=== PATIENT | female | born 1950 | race African-American/Black ===

== ENCOUNTER 2018-07-17 15:36 | Emergency (ER) | payer OTHER ==
[2018-07-17] MEDS: HALOPERIDOL 5 MG INJ IM (15:50)
[2018-07-17] MEDS: LORAZEPAM 2 MG INJ IV (16:01)
[2018-07-17] MEDS ORDERED: LORAZEPAM 2 MG INJ (16:03)
[2018-07-17 16:19] LABS: ADD MAN DIFF? NO
[2018-07-17 16:21] LABS: BASOPHILS % 0.2 % (0.0-2.0); EOSINOPHILS % 0.4 % (0.0-7.0); HEMATOCRIT 42.5 % (37.0-47.0); HEMOGLOBIN 13.6 g/dl (12.0-16.0); LYMPHOCYTES # 4.2 10^3/ul (0.8-2.9); MEAN CORPUSCULAR HEMOGLOBIN 28.9 pg (29.0-33.0); MEAN CORPUSCULAR VOLUME 90.2 fl (82.0-101.0); MEAN PLATELET VOLUME 9.4 fl (7.4-10.4); MONOCYTE # 0.8 10^3/ul (0.3-0.9); MONOCYTES % 8.4 % (0.0-11.0); NEUTROPHIL # 4.4 10^3/ul (1.6-7.5); NEUTROPHILS % 46.7 % (39.0-77.0); PLATELET COUNT 226 10^3/UL (140-415); RED BLOOD COUNT 4.71 10^6/ul (4.20-5.40); RED CELL DISTRIBUTION WIDTH 15.3 % (11.5-14.5)
[2018-07-17 16:21] LABS: WHITE BLOOD COUNT 9.5 10^3/ul (4.8-10.8)
[2018-07-17 16:39] LABS: ANION GAP 20 (5-13); BLOOD UREA NITROGEN 10 mg/dl (7-20); CALCIUM 10.4 mg/dl (8.4-10.2); CARBON DIOXIDE 17 mmol/L (21-31); CHLORIDE 109 mmol/L (97-110); CHOL/HDL RATIO 4.8 RATIO; CHOLESTEROL 238 mg/dl (100-200); CREATININE 0.67 mg/dl (0.44-1.00); Estimated GFR > 60 mL/min (>60); GLUCOSE 122 mg/dl (70-220); HDL CHOLESTEROL 49 mg/dl (35-98); LDL CHOLESTEROL,CALCULATED 171 mg/dl; POTASSIUM 3.4 mmol/L (3.5-5.1); SODIUM 146 mmol/L (135-144); TRIGLYCERIDES 91 mg/dl (0-149)
[2018-07-17 16:40] LABS: INR 1.08; PROTIME 14.1 Sec (11.9-14.9); PT RATIO 1.1
[2018-07-17 16:41] LABS: PARTIAL THROMBOPLASTIN TIME 27.2 Sec (23.0-35.0)
[2018-07-17 16:51] LABS: TROPONIN-I < 0.012 ng/ml (0.000-0.120)
[2018-07-17 16:55] LABS: HEMOGLOBIN A1C 5.1 % (0-5.9)
[2018-07-17 16:59] LABS: VALPROATE < 10 ug/ml (50-100)
[2018-07-17 17:34] LABS: ADD UMIC NO; UR ASCORBIC ACID 40 mg/dL (NEGATIVE); UR BILIRUBIN (Dip) NEGATIVE (NEGATIVE); UR BLOOD (Dip) NEGATIVE (NEGATIVE); UR CLARITY CLEAR (CLEAR); UR COLOR YELLOW (YELLOW); UR GLUCOSE (Dip) NEGATIVE (NEGATIVE); UR KETONES (Dip) NEGATIVE (NEGATIVE); UR LEUKOCYTE ESTERASE (Dip) NEGATIVE Leu/ul (NEGATIVE); UR NITRITE (Dip) NEGATIVE (NEGATIVE); UR SPECIFIC GRAVITY (Dip) 1.013 (1.003-1.030); UR TOTAL PROTEIN (Dip) NEGATIVE (NEGATIVE); UR UROBILINOGEN (Dip) NEGATIVE (NEGATIVE)
[2018-07-17 17:49] LABS: AMPHETAMINE/METHAMPHETAMINE Negative (NEGATIVE); BARBITURATES Negative (NEGATIVE); BENZODIAZEPINES Negative (NEGATIVE); CANNABINOIDS Negative (NEGATIVE); COCAINE Negative (NEGATIVE); OPIATES Negative (NEGATIVE)
== END 2018-07-17 22:23 | disposition home or self-care (01) ==
LOC: E/R 15:36
DX: R41.82 Altered mental status, unspecified (principal); R56.9 Unspecified convulsions; I63.9 Cerebral infarction, unspecified
CPT/HCPCS: 36415; 70450; 71045; 80048; 80061; 80164; 80307; 81003; 82962; 83036; 84484; 85025; 85610; 85730; 93005; 96372; 96374; 99285-25

== ENCOUNTER 2018-07-17 23:03 | Emergency (ER) | payer OTHER ==
[2018-07-18] MEDS: VALPROATE INJ 500 MG in SOD CHLORIDE 0.9% 50 ML IVPB (01:03)
== END 2018-07-18 01:56 | disposition short-term general hospital (02) ==
LOC: E/R 23:03
DX: G40.309 Generalized idiopathic epilepsy and epileptic syndromes, not intractable, without status epilepticus (principal); R41.0 Disorientation, unspecified; E87.6 Hypokalemia; E87.2 Acidosis; Z91.14 Patient's other noncompliance with medication regimen
CPT/HCPCS: 82962; 93005; 96374; 99285-25

== ENCOUNTER 2018-09-12 07:52 | Emergency (ER) | payer OTHER ==
[2018-09-12 08:43] LABS: WHITE BLOOD COUNT 7.5 10^3/ul (4.8-10.8)
[2018-09-12 08:43] LABS: ADD MAN DIFF? NO; BASOPHILS % 0.3 % (0.0-2.0); EOSINOPHILS # 0.1 10^3/ul (0.0-0.5); EOSINOPHILS % 0.8 % (0.0-7.0); HEMATOCRIT 39.6 % (37.0-47.0); HEMOGLOBIN 13.3 g/dl (12.0-16.0); LYMPHOCYTES # 1.6 10^3/ul (0.8-2.9); MEAN CORPUSCULAR HEMOGLOBIN 29.2 pg (29.0-33.0); MEAN CORPUSCULAR HGB CONC 33.6 g/dl (32.0-37.0); MEAN CORPUSCULAR VOLUME 86.8 fl (82.0-101.0); MEAN PLATELET VOLUME 9.3 fl (7.4-10.4); MONOCYTE # 0.6 10^3/ul (0.3-0.9); MONOCYTES % 7.6 % (0.0-11.0); NEUTROPHIL # 5.2 10^3/ul (1.6-7.5); PLATELET COUNT 231 10^3/UL (140-415); RED BLOOD COUNT 4.56 10^6/ul (4.20-5.40)
[2018-09-12] MEDS: CEFEPIME 2GM/50 ML (PMX) 50 ML IVPB (08:50)
[2018-09-12] MEDS: SOD CHLORIDE 0.9% 1,000 ML IV (08:50)
[2018-09-12] MEDS: LORAZEPAM 2 MG INJ IV (08:50)
[2018-09-12] MEDS: LEVETIRACETAM 1000 MG (PMX) 100 ML IVPB (08:53)
[2018-09-12] MEDS: SODIUM CHLORIDE 0.9% 1L BAG IV* (08:57)
[2018-09-12 09:01] LABS: ALANINE AMINOTRANSFERASE 14 IU/L (13-69); ALBUMIN 3.5 g/dl (3.3-4.9); ALBUMIN/GLOBULIN RATIO 0.94; ALKALINE PHOSPHATASE 109 IU/L (42-121); ANION GAP 8 (5-13); ASPARTATE AMINO TRANSFERASE 18 IU/L (15-46); BILIRUBIN,INDIRECT 0.7 mg/dl (0-1.1); BILIRUBIN,TOTAL 0.7 mg/dl (0.2-1.3); BLOOD UREA NITROGEN 8 mg/dl (7-20); CALCIUM 9.5 mg/dl (8.4-10.2); CARBON DIOXIDE 27 mmol/L (21-31); CHLORIDE 108 mmol/L (97-110); CREATINE KINASE 43 IU/L (23-200); Estimated GFR > 60 mL/min (>60); GLUCOSE 111 mg/dl (70-220); POTASSIUM 3.6 mmol/L (3.5-5.1); SODIUM 143 mmol/L (135-144); TOTAL PROTEIN 7.2 g/dl (6.1-8.1)
[2018-09-12 09:03] LABS: INR 0.91; PARTIAL THROMBOPLASTIN TIME 24.7 Sec (23.0-35.0); PROTIME 12.4 Sec (11.9-14.9)
[2018-09-12 09:04] LABS: ACETAMINOPHEN < 10.0 ug/ml (10.0-30.0)
[2018-09-12 09:05] LABS: ETHANOL < 10.0 mg/dl (0-0); SALICYLATE < 1.0 mg/dl (5.0-30.0)
[2018-09-12 09:09] LABS: CK INDEX 0.6; CK-MB 0.25 ng/ml (0.0-2.4)
[2018-09-12 09:14] LABS: TROPONIN-I < 0.012 ng/ml (0.000-0.120)
[2018-09-12 09:27] LABS: FREE THYROXINE INDEX (Calc) 3.33 ug/ml (0.65-3.89); T3 UPTAKE 35.1 % (23.5-40.5); T4 (THYROXINE) 9.5 ug/dl (5.5-11.0)
[2018-09-12 09:57] LABS: VALPROATE < 10 ug/ml (50-100)
[2018-09-12] MEDS: VANCOMYCIN 1 GM (PMX) 250 ML IVPB (10:28)
[2018-09-12 11:19] LABS: LACTIC ACID 1.9 mmol/L (0.5-2.0)
== END 2018-09-12 13:25 | disposition home or self-care (01) ==
LOC: E/R 13:25
DX: G40.901 Epilepsy, unspecified, not intractable, with status epilepticus (principal); E87.2 Acidosis
CPT/HCPCS: 36415; 70450; 71045; 80053; 80164; 80307; 82550; 82553; 83605; 84436; 84479; 84484; 85025; 85610; 85730; 87040-91; 93005; 96374; 96375; 99285-25